=== PATIENT | male | born 1955 | race Caucasian/White ===

== ENCOUNTER 2019-12-05 05:38 | Day surgery (SDC) | payer BC ==
[2019-11-29 11:18] LABS: BASOPHILS # (AUTO) 0.1 X10'3 (0-0.2); BASOPHILS % (AUTO) 1.2 % (0-1); EOSINOPHILS # (AUTO) 0.3 X10'3 (0-0.9); LYMPHOCYTES # (AUTO) 0.7 X10'3 (1.1-4.8); LYMPHOCYTES % (AUTO) 16.2 % (21-51); MEAN CORPUSCULAR HEMOGLOBIN 31.3 PG (27.0-31.0); MEAN CORPUSCULAR HGB CONC 33.6 g/dL (33.0-36.5); MONOCYTES # (AUTO) 0.4 X10'3 (0-0.9); MONOCYTES % (AUTO) 8.8 % (2-12); NEUTROPHILS # (AUTO) 2.9 X10'3 (1.8-7.7); NEUTROPHILS % (AUTO) 66.8 % (42-75); PRE OP HEMATOCRIT 43.4 % (42.0-52.0); PRE OP HEMOGLOBIN 14.6 g/dL (14.0-17.9); PRE OP PLATELET COUNT 241 X10'3 (140-440); RED BLOOD COUNT 4.66 X10'6 (4.70-6.10); RED CELL DISTRIBUTION WIDTH 14.3 % (11.5-14.5)
[2019-11-29 11:30] LABS: ALBUMIN/GLOBULIN RATIO 1.3 (1.1-1.5); ALKALINE PHOSPHATASE 55 IU/L (46-116); BLOOD UREA NITROGEN 15 MG/DL (7-18); BUN/CREATININE RATIO 16.5 (5.4-32.0); CALCIUM 8.6 MG/DL (8.5-10.1); CHLORIDE 108 MMOL/L (99-107); CREATININE 0.91 MG/DL (0.60-1.10); PRE OP ALT 26 U/L (30-65); PRE OP ANION GAP 4 (8-16); PRE OP AST 17 U/L (10-37); PRE OP BILIRUB, TOTAL 0.6 MG/DL (0.0-1.0); PRE OP GLUCOSE 113 MG/DL (70-104); PRE OP POTASSIUM 3.8 MMOL/L (3.4-5.1); PRE OP SODIUM 142 MMOL/L (135-145); eGFR 84 ML/MIN
[2019-12-05] VITALS (13 sets, daily range): BP systolic 119–180; BP diastolic 72–95
[~2019-12-05] VITALS: Ht 177.8 cm; Wt 77.2 kg
[~2019-12-05 05:38] MED LIST: ALEN70TA13; AZAT100T PO; BUPR75TA12 PO; CITA40TA17 PO; famotidine 20mg tablet PO ONE; ringers solution, lacted 1,000 ML IV SCH
[2019-12-05] MEDS ORDERED: cefazolin/dext.iso 2gm/50ml 50 ML IV ONE (06:00)
[2019-12-05] MEDS ORDERED: CHOL20004 PO (06:19)
[2019-12-05] MEDS ORDERED: MESA1.2T PO (06:19)
[2019-12-05] MEDS ORDERED: MULT-1085 PO (06:19)
[2019-12-05] MEDS ORDERED: BUPIVAcaine/PF 2.5 mg/ml (0.25%) 30ml vial ONE (06:48)
[2019-12-05] MEDS ORDERED: LIDOcaine 1% w/epiNEPHrine 1:200,000 30ml vial ONE (06:48)
[2019-12-05] MEDS ORDERED: sevoflurane 250ml liquid IH ONE (07:27)
[2019-12-05] MEDS ORDERED: midazolam 2 mg/2 ml injection ONE (07:29)
[2019-12-05] MEDS ORDERED: fentaNYL/PF 50MCG/1 ML 2ML syringe ONE (07:29)
[2019-12-05] MEDS ORDERED: ringers solution, lacted 1,000 ML IV SCH (08:03)
[2019-12-05] MEDS ORDERED: proCHLORperazine 10 MG/2 ml inj IV PRN (08:05)
[2019-12-05] MEDS ORDERED: meperidine/PF 25mg/ml syringe IV PRN ×2 (08:05)
[2019-12-05] MEDS ORDERED: ondansetron/PF 4mg/2ml inj IV PRN (08:05)
[2019-12-05] MEDS ORDERED: morphine 2 MG/ML inj. syringe IV PRN (08:05)
[2019-12-05] MEDS ORDERED: morphine 4 MG/ML inj SYRINge IV PRN (08:05)
--- NOTE | 2019-12-05 08:55 | NUR ---
Received from OR via BED , accompanied by Anesthesiologist DR RIVERA and report given by Anesthesiolgist. PATIENT WAKING UP, C/O ANIA SEE EMAR, V/S WNL, NEUROVASCULAR CHECKS INTACT, 20G PIV LUE, SCD ON, BANDAIDS TO LAP SIGHTS OF ABDOMEN CDI
[2019-12-05] MEDS: meperidine/PF 25mg/ml syringe IV PRN ×2 (09:04→09:45)
[2019-12-05] MEDS ORDERED: propofol inj 20 ML IV ONE (09:16)
[2019-12-05] MEDS ORDERED: LIDOcaine 2% (20mg/ml) 5ml vial ONE (09:16)
[2019-12-05] MEDS ORDERED: ondansetron/PF 4mg/2ml inj ONE (09:16)
[2019-12-05] MEDS ORDERED: rocuronium 10mg/ml inj IV ONE (09:16)
[2019-12-05] MEDS ORDERED: dexamethasone sod phosphate 4mg/ml inj. ONE (09:16)
[2019-12-05] MEDS ORDERED: neostigmine methylsulfate 1 MG/ML 10ml vial ONE (09:16)
[2019-12-05] MEDS ORDERED: glycopyrrolate 0.2mg/ml inj ONE (09:16)
[2019-12-05] MEDS ORDERED: HYDROcodone/acetaminophen 5mg/325mg tablet PO PRN ×2 (09:20)
--- NOTE | 2019-12-05 10:35 | NUR ---
PATIENT A&OX4, DENIES PAIN, V/S WNL, NEUROVASCULAR CHECKS INTACT, 20G PIV LUE D/C, SCD OFF, BANDAIDS TO LAP SIGHTS OF ABDOMEN CDI.. I HAVE REVIEWED D/C INSTRUCTIONS WITH PATIENT AND FAMILY HAVE VERBALIZED UNDERSTANDING.SCRIPT GIVEN FOR PAIN AND PATIENT STRAIGHT CATH FOR 600CC URINE PER DR RUGGIERO WHO SAID HE MAY BE D/C HOME AFTER THIS. PATIENT WAS D/C HOME WITH ALL BELONGINGS AND FAMILY GAVE TRANSPORT HOME.
== END 2019-12-05 10:35 | disposition home or self-care (01) ==
LOC: PAS 05:38
PROVIDERS: ATTEND Surgery
DX: K40.90 Unilateral inguinal hernia, without obstruction or gangrene, not specified as recurrent (principal); K43.6 Other and unspecified ventral hernia with obstruction, without gangrene; Z11.59 Encounter for screening for other viral diseases; Z98.890 Other specified postprocedural states; Z79.899 Other long term (current) drug therapy; Z87.01 Personal history of pneumonia (recurrent); Z87.19 Personal history of other diseases of the digestive system; Z88.5 Allergy status to narcotic agent; Z80.6 Family history of leukemia; Z82.49 Family history of ischemic heart disease and other diseases of the circulatory system
CPT/HCPCS: 36415; 49561; 49650; 80053; 82948; 85025; 93005; C1781; J1100; J2001; J2175; J2250; J2270; J2405; J2704; J2710; J3010; J3490; S2900; U0003; A4215; A4618; J7120